=== PATIENT | female | born 2000 | race Caucasian/White ===

== ENCOUNTER 2024-06-25 16:55 | Outpatient (CLI) | payer BC, SELFPAY ==
[2024-06-25 18:33] LABS: HIV 1/2 Ab P24 Ag Result Negative (Negative)
[2024-06-25 18:55] LABS: Hepatitis B Surface Antigen Negative (Negative)
[2024-06-25 19:01] LABS: HAV RESULT Negative (Negative); Hepatitis B Core IgM Result Negative (Negative)
[2024-06-25 19:12] LABS: Hepatitis C Virus Antibody Negative (Negative)
[2024-06-26 07:12] LABS: Rapid Plasma Reagin Non-Reactive (NonReactive)
== END 2024-06-25 16:56 | disposition home or self-care (01) ==
LOC: ANHLAB 16:57
PROVIDERS: PCP Pediatrics; Visit Provider Student in an Organized Health Care Education/Training Program
DX: Z11.3 Encounter for screening for infections with a predominantly sexual mode of transmission (principal)
CPT/HCPCS: 36415; 80074; 86592; 86695; 86696; 86703; G0432